=== PATIENT | male | born 1965 ===

== ENCOUNTER 2020-11-18 06:35 | Day surgery (SDC) | payer OTHER ==
[~2020-11-18] VITALS: Ht 170.2 cm; Wt 80.6 kg
[~2020-11-18 06:35] MED LIST: CEPH500 PO; FAMO20 PO; HYDACE5 PO; IBUP800 PO; INCARCERATION
--- NOTE | 2020-11-18 07:53 | NUR ---
Ambulatory in Day Surgery History, Chart, Medications and Allergies reviewed before start of procedure. Lungs clear T/O to Auscultation. Patient confirms NPO status and agrees with scheduled surgery. Patient reports completing Chlorhexadine shower X2 prior to admission to hospital. DR. CALVERT AT BEDSIDE, SMALL ABRASION NOTED TO Linda PIEDRA AND MD BENNETT DUGAN
--- NOTE | 2020-11-18 09:28 | NUR ---
11/18/20 0928 SURYA,MILAN PT NOTED TO HAVE TO AREAS ON THE LEFT LOWER LEG, BELOW LEFT KNEE THAT ARE HEALING. SKIN INTACT, NO DRAINAGE NOTED, NO REDNESS NOTED. DR CALVERT MADE AWARE OF AREAS PRIOR TO PROCEDURE AND DR IS OK TO PROCEED WITH PROCEDURE.
--- NOTE | 2020-11-18 15:08 | NUR ---
WORKING WITH PHYS. OVALLE, VOIDED 550CC CLEAR, YELLOW URINE, MEDICATED W/ 2 OXYCODONE PRIOR TO THERAPY SESSION.
--- NOTE | 2020-11-18 18:21 | NUR ---
SUMMARY REPORTS PAIN IS TOLERABLE WITH PO PAIN MEDS, REPORTS HAVING FULL SENSATION BACK PT HAS AMBULATED DOWN THE HALLS X2, VOIDING WITHOUT DIFFICULTY, TOLERATING REGULAR DIET WELL, L KNEE DSG C/D/I, POLAR PACK IN PLACE, OOB TO CHAIR AFTER AMBULATING, NO ACUTE CHANGES THIS SHIFT.
--- NOTE | 2020-11-19 04:35 | NUR ---
SHIFT SUMMARY POD1 L KNEE UNICOMPARTMENTAL KNEE ARTHROOPLASTY. VSS BUT HAS SOME HTN. PAIN IS WELL CONTROLLED, REPORTS MIN-MODERATE (1-12/27) PT HAD DILAUDID AND ASTRID, TORADOL AND TYLENOL. PT REPORTS DILAUDID MADE HIM ITCH AND STARTED TO HAVE HOT FLUSHES. BUT IT HAS BEEN RESOLVED. L KNEE WITH JUDY WRAPPED CDI WITH POLAR PACK. PT DENIES N/T. HE WALKED ONCE IN THE HALLWAY LAST NIGHT. TOLERATED IT WELL. PT HAD SOME DIZZINESS AT REST AT THE BEGINNING OF THE SHIFT BUT RESOLVED. HE DENIES DIZZINESS WHEN GETTING UP AND WALKING. NO DIFFICULTY WALKING. TOLERATING REG DIET. DENIES N/V. DENIES PASSING FLAUTS. CALL LIGHT WITHIN REACH.
[2020-11-19 04:40] LABS: BASOPHILS ABSOLUTE AUTO 0.03 K/mm3 (0.00-0.23); BASOPHILS PERCENT AUTO 0 % (0-2); EOSINOPHILS PERCENT AUTO 0 % (0-6); Hematocrit 42.2 % (37.0-53.0); Hemoglobin 14.4 g/dL (13.5-17.5); IMMATURE GRAN ABSOLUTE AUTO 0.12 K/mm3 (0.00-0.10); IMMATURE GRAN PERCENT AUTO 1 % (0-1); LYMPHOCYTES PERCENT AUTO 7 % (21-46); MONOCYTES ABSOLUTE AUTO 0.77 K/mm3 (0.16-1.47); MONOCYTES PERCENT AUTO 4 % (4-13); Mean Corpuscular HGB 28.5 pg (26.0-34.0); Mean Corpuscular HGB Conc 34.1 g/dL (31.5-36.5); Mean Corpuscular Volume 84 fL (80-100); Mean Platelet Volume 10.5 fL (9.1-12.4); NEUTROPHILS ABSOLUTE AUTO 15.22 K/mm3 (1.96-9.15); NEUTROPHILS PERCENT AUTO 88 % (41-73); Platelet Count 292 K/mm3 (150-400); RDW Coefficient Variation 12.2 % (11.7-14.2); RDW Standard Deviation 37.3 fL (35.1-46.3); Red Blood Cell Count 5.05 M/mm3 (4.30-5.90); White Blood Cell Count 17.34 K/mm3 (4.00-11.30)
[2020-11-19 04:58] LABS: Anion Gap 6 mmol/L (6-16); Blood Urea Nitrogen 12 mg/dL (8-24); CO2, Blood 26 mmol/L (21-32); Calcium, Blood 9.2 mg/dL (8.5-10.1); Chloride, Blood 106 mmol/L (98-108); Creatinine, Blood 0.92 mg/dL (0.60-1.20); Glomerular Filtration Rate >60 (60-); Glucose, Blood 170 mg/dL (70-99); Potassium, Blood 4.2 mmol/L (3.5-5.5); Sodium, Blood 138 mmol/L (136-145)
[2020-11-19] MEDS ORDERED: Percocet 5-3251 EACH PO (11:31)
[2020-11-19] MEDS ORDERED: ASPI81CH PO (11:32)
--- NOTE | 2020-11-19 13:28 | NUR ---
DISCHARGE PT CLEARED THERAPY. PAIN WELL CONTROLLED. EATING, DRINKING, VOIDING WELL. SCRIPTS, DRSGS, & POLAR PACK SENT. ESCORTED OUT VIA W/C.
== END 2020-11-19 14:45 | disposition home or self-care (01) ==
LOC: ORSCMMR 06:35 → ORD 08:30 → SURS 11:39 → ORSCMMR 11-19 14:45
PROVIDERS: Orthopaedic Surgery
PROC: 8E0YXBZ Computer Assisted Procedure of Lower Extremity (ICD-10-PCS; principal; 2020-11-18 08:30)
PROC: 8E0Y0CZ Robotic Assisted Procedure of Lower Extremity, Open Approach (ICD-10-PCS; principal; 2020-11-18 08:30)
PROC: 0SRU0J9 Replacement of Left Knee Joint, Femoral Surface with Synthetic Substitute, Cemented, Open Approach (ICD-10-PCS; principal; 2020-11-18 08:30)
DX: M17.12 Unilateral primary osteoarthritis, left knee (principal); I10 Essential (primary) hypertension
CPT/HCPCS: 27446; S2900; 36415; 73560-LT; 80048; 85025; 97110; 97116; 97161; 97530; A9270; C1713; C1776; J0171; J0690; J0735; J1100; J1170; J1885; J2250; J2370; J2405; J2704; J2795; J3010; J7120

== ENCOUNTER 2021-04-14 10:02 | Emergency (ER) | payer OTHER ==
[~2021-04-14] VITALS: Ht 170.2 cm; Wt 81.2 kg
[~2021-04-14 10:02] MED LIST changes: +ASPI81CH PO; +Percocet 5-3251 EACH PO
[2021-04-14 10:49] LABS: BASOPHILS ABSOLUTE AUTO 0.04 K/mm3 (0.00-0.23); BASOPHILS PERCENT AUTO 0 % (0-2); EOSINOPHILS ABSOLUTE AUTO 0.61 K/mm3 (0.00-0.68); EOSINOPHILS PERCENT AUTO 7 % (0-6); Hematocrit 44.2 % (37.0-53.0); Hemoglobin 14.9 g/dL (13.5-17.5); IMMATURE GRAN ABSOLUTE AUTO 0.05 K/mm3 (0.00-0.10); IMMATURE GRAN PERCENT AUTO 1 % (0-1); LYMPHOCYTES ABSOLUTE AUTO 1.58 K/mm3 (0.84-5.20); LYMPHOCYTES PERCENT AUTO 18 % (21-46); MONOCYTES ABSOLUTE AUTO 0.56 K/mm3 (0.16-1.47); MONOCYTES PERCENT AUTO 6 % (4-13); Mean Corpuscular HGB 28.5 pg (26.0-34.0); Mean Corpuscular HGB Conc 33.7 g/dL (31.5-36.5); Mean Corpuscular Volume 85 fL (80-100); Mean Platelet Volume 10.9 fL (9.1-12.4); NEUTROPHILS ABSOLUTE AUTO 6.21 K/mm3 (1.96-9.15); NEUTROPHILS PERCENT AUTO 69 % (41-73); Platelet Count 230 K/mm3 (150-400); RDW Coefficient Variation 12.7 % (11.7-14.2); RDW Standard Deviation 38.7 fL (35.1-46.3); Red Blood Cell Count 5.22 M/mm3 (4.30-5.90); White Blood Cell Count 9.05 K/mm3 (4.00-11.30)
[2021-04-14] MEDS ORDERED: Robaxin750 MG PO (11:07)
[2021-04-14 11:21] LABS: Alanine Aminotransfer (ALT/SGP 73 U/L (12-78); Albumin, Blood 3.3 g/dL (3.4-5.0); Albumin/Globulin Ratio 0.9 (0.8-1.8); Alk Phos 158 U/L (50-136); Anion Gap 5 mmol/L (6-16); Aspartate Aminotrans (AST/SGOT 30 U/L (12-37); Bilirubin, Total 0.4 mg/dL (0.1-1.0); Blood Urea Nitrogen 13 mg/dL (8-24); Bun/Creatinine Ratio 14.2 (12.0-20.0); CO2, Blood 28 mmol/L (21-32); Calcium, Blood 8.5 mg/dL (8.5-10.1); Chloride, Blood 104 mmol/L (98-108); Creatinine, Blood 0.91 mg/dL (0.60-1.20); Globulin, Blood 3.7 g/dL (2.2-4.0); Glomerular Filtration Rate >60 (60-); Glucose, Blood 191 mg/dL (70-99); Potassium, Blood 3.8 mmol/L (3.5-5.5); Sodium, Blood 137 mmol/L (136-145); Troponin I <0.015 ng/mL (0.000-0.040)
== END 2021-04-14 11:27 | disposition home or self-care (01) ==
LOC: ER 10:02
PROVIDERS: Emergency Medicine
DX: I10 Essential (primary) hypertension (principal); S39.012A Strain of muscle, fascia and tendon of lower back, initial encounter; X58.XXXA Exposure to other specified factors, initial encounter
CPT/HCPCS: 71046; 80053; 84484; 85025; 93005; 93010; 99284-25

== ENCOUNTER 2021-10-15 10:51 | Emergency (ER) | payer OTHER ==
[~2021-10-15] VITALS: Ht 170.2 cm; Wt 77.1 kg
[~2021-10-15 10:51] MED LIST changes: +Robaxin750 MG PO
[2021-10-15] MEDS ORDERED: Robaxin750 MG PO (12:46)
== END 2021-10-15 13:11 | disposition home or self-care (01) ==
LOC: ER 10:51
DX: S16.1XXA Strain of muscle, fascia and tendon at neck level, initial encounter (principal); S39.012A Strain of muscle, fascia and tendon of lower back, initial encounter; S20.211A Contusion of right front wall of thorax, initial encounter; G44.309 Post-traumatic headache, unspecified, not intractable; I10 Essential (primary) hypertension; Z79.899 Other long term (current) drug therapy; V89.2XXA Person injured in unspecified motor-vehicle accident, traffic, initial encounter
CPT/HCPCS: 70450; 71046; 72125; 96372; 99284-25; A9270; J1885

== ENCOUNTER → 2021-12-31 | Outpatient (CLI) | payer OTHER ==
[2021-12-31 17:27] LABS: Adenovirus F 40/41 Not Detected (NOT DETECT); Astrovirus Not Detected (NOT DETECT); Campylobacter Sp Not Detected (NOT DETECT); Cryptosporidium Not Detected (NOT DETECT); Cyclospora Cayetanensis Not Detected (NOT DETECT); E. Coli O157 Not Detected (NOT DETECT); Entamoeba Histolytica Not Detected (NOT DETECT); Enteroaggregative E. coli-EAEC Not Detected (NOT DETECT); Enteropathogenic E. coli-EPEC Not Detected (NOT DETECT); Enterotoxigenic E. coli-ETEC Not Detected (NOT DETECT); Giardia Lamblia Detected (NOT DETECT); Norovirus GI/GII Not Detected (NOT DETECT); Plesiomonas Shigelloides Not Detected (NOT DETECT); Rotavirus A Not Detected (NOT DETECT); Salmonella Sp Not Detected (NOT DETECT); Sapovirus Not Detected (NOT DETECT); Shiga Toxin-prod E. coli-STEC Not Detected (NOT DETECT); Shigella/Enteroin E. coli-EIEC Not Detected (NOT DETECT); Vibrio Cholerae Not Detected (NOT DETECT); Vibrio Sp Not Detected (NOT DETECT); Yersinia Enterocolitica Not Detected (NOT DETECT)
== END ==
LOC: LAB SHORT 08:00
PROVIDERS: Family Medicine
DX: K52.9 Noninfective gastroenteritis and colitis, unspecified (principal); R10.13 Epigastric pain
CPT/HCPCS: 87507

== ENCOUNTER → 2022-12-22 | Outpatient (CLI) | payer OTHER | END | disposition home or self-care (01) | LOC: LAB 18:00 → LAB SHORT 18:00 | DX: R10.13 Epigastric pain (principal) | CPT/HCPCS: 87338 ==

== ENCOUNTER 2024-05-07 12:18 | Day surgery (SDC) | payer OTHER ==
[2024-05-07] VITALS (13 sets, daily range): BP systolic 104–157; BP diastolic 63–88
[~2024-05-07] VITALS: Ht 170.2 cm; Wt 78.4 kg
[~2024-05-07 12:18] MED LIST changes: +LOSA25 PO
[2024-05-07] MEDS ORDERED: OxyCODONE HCL 10 MG TABCR PO SCH (13:35)
[2024-05-07] MEDS ORDERED: Chlorhexidine Mouth Care 15 ML UDC MT SCH (13:35)
[2024-05-07] MEDS ORDERED: Ropivacaine 0.5% HCl/Pf 123.125 MG,EPINEPHrine HCL 0.25 MG,Ketorolac Tromethamine 15 MG... INFIL SCH (13:35)
[2024-05-07] MEDS ORDERED: CeFAZolin Sodium 2,000 MG in NS 100 ML IV SCH ×2 (13:35→20:30)
[2024-05-07] MEDS ORDERED: Lactated Ringer's 1,000 ML IV SCH ×2 (13:35→17:30)
[2024-05-07] MEDS ORDERED: Acetaminophen 500 MG Tab PO SCH (13:35)
[2024-05-07] MEDS ORDERED: Tranexamic Acid 100 ML IV SCH (13:38)
[2024-05-07] MEDS ORDERED: Midazolam HCl 1MG / ML 2ML Vial ONE ×2 (14:01→14:33)
[2024-05-07] MEDS ORDERED: propofoL 20 ML IV ONE ×4 (14:01→16:04)
[2024-05-07] MEDS ORDERED: FentaNYL Citrate 50 MCG/ML 2 ML Injection ONE (14:02)
--- NOTE | 2024-05-07 14:11 | NUR ---
History, Chart, Medications and Allergies reviewed before start of procedure. Ambulatory in Day Surgery WITH STEADY GAIT. Pre-Op teaching done. Pt verbalizes understanding. PT DENIES ANY FURTHER QUESTIONS. BELONGINGS PLACED UNDER GURN.
[2024-05-07] MEDS ORDERED: DiphenhydrAMINE HCL 25 MG Cap PO PRN (17:30)
[2024-05-07] MEDS ORDERED: Ondansetron HCl 2 MG / ML 2ML Vial IV PRN (17:30)
[2024-05-07] MEDS ORDERED: Bisacodyl 10 MG Supp PR PRN (17:30)
[2024-05-07] MEDS ORDERED: Metoclopramide HCl 5MG / ML 2ML Vial IV PRN (17:30)
[2024-05-07] MEDS ORDERED: Magnesium Hydroxide Conc 10 ML UDC PO PRN (17:30)
[2024-05-07] MEDS ORDERED: Promethazine HCl 25 MG Tab PO PRN (17:35)
[2024-05-07] MEDS ORDERED: OxyCODONE HCL 5 MG TAB PO PRN ×2 (17:35)
[2024-05-07] MEDS ORDERED: HYDROmorphone HCl/Pf 1MG SYR IV PRN (17:35)
--- NOTE | 2024-05-07 17:45 | NUR ---
POST OP ARRIVAL TO SURGICAL UNIT VIA HOSPITAL BED. ALERT & PLEASANT. ANXIOUS ABOUT NOT BEING ABLE TO MOVE BLE R/T SPINAL, REASSURED. ASSESSMENT CHARTED. SNACKS & DRINKS GIVEN BUT NOT INTERESTED.
[2024-05-07] MEDS ORDERED: Ketorolac Tromethamine 15mg Vial IV SCH (18:00)
[2024-05-07] MEDS ORDERED: Simethicone 80 MG Chew PO PRN (20:45)
[2024-05-07] MEDS ORDERED: Docusate Sodium 100 MG Cap PO SCH (21:00)
[2024-05-08] MEDS ORDERED: Acetaminophen 500 MG Tab PO SCH
[2024-05-08 04:29] LABS: BASOPHILS ABSOLUTE AUTO 0.04 K/mm3 (0.00-0.23); BASOPHILS PERCENT AUTO 0 % (0-2); EOSINOPHILS ABSOLUTE AUTO 0.19 K/mm3 (0.00-0.68); EOSINOPHILS PERCENT AUTO 2 % (0-6); Hematocrit 41.8 % (37.0-53.0); Hemoglobin 13.9 g/dL (13.5-17.5); IMMATURE GRAN ABSOLUTE AUTO 0.04 K/mm3 (0.00-0.10); IMMATURE GRAN PERCENT AUTO 0 % (0-1); LYMPHOCYTES PERCENT AUTO 17 % (21-46); MONOCYTES ABSOLUTE AUTO 0.75 K/mm3 (0.16-1.47); MONOCYTES PERCENT AUTO 7 % (4-13); Mean Corpuscular HGB 27.7 pg (26.0-34.0); Mean Corpuscular HGB Conc 33.3 g/dL (31.5-36.5); Mean Corpuscular Volume 83 fL (80-100); Mean Platelet Volume 10.7 fL (9.1-12.4); NEUTROPHILS ABSOLUTE AUTO 8.07 K/mm3 (1.96-9.15); NEUTROPHILS PERCENT AUTO 73 % (41-73); Platelet Count 241 K/mm3 (150-400); RDW Coefficient Variation 12.5 % (11.7-14.2); RDW Standard Deviation 37.9 fL (35.1-46.3); Red Blood Cell Count 5.02 M/mm3 (4.30-5.90); White Blood Cell Count 10.99 K/mm3 (4.00-11.30)
[2024-05-08 04:40] VITALS: BP 149/84
[2024-05-08 05:01] LABS: Bun/Creatinine Ratio 12.1 (12.0-20.0); Calcium, Blood 8.1 mg/dL (8.5-10.1); Creatinine, Blood 0.91 mg/dL (0.60-1.20); Magnesium, Blood 1.8 mg/dL (1.6-2.4); Potassium, Blood 3.5 mmol/L (3.5-5.5)
--- NOTE | 2024-05-08 05:02 | NUR ---
SUMMARY- PT NUMBNESS RESOLVED AND PT WAS ABLE TO VOID AND AMBULATE TO RESTROOM. PT AMBULATED WITH GB AND FWW. PT PAIN MANAGED WELL. PT HAD SOME EPISODES OF ITCHINESS. PT TX WITH BENEDRYL WITH RELIEF. NO NEW ISSUES OR CONCERNS. CALL LIGHT IN REACH.
[2024-05-08 07:28] VITALS: BP 159/94
[2024-05-08 07:29] VITALS: BP 157/85
[2024-05-08] MEDS ORDERED: ACET500 PO (08:26)
[2024-05-08] MEDS ORDERED: ASPI81CH PO (08:26)
[2024-05-08] MEDS ORDERED: OXYC5 PO (08:27)
[2024-05-08] MEDS ORDERED: Losartan Potassium 25 MG Tab PO SCH (09:00)
[2024-05-08] MEDS ORDERED: Aspirin 81 MG Chew PO SCH (09:00)
--- NOTE | 2024-05-08 10:25 | NUR ---
DISCHARGE INSTRUCTIONS CLEARED THERAPY. PAIN CONTROLLED. EATING, DRINKING, & VOIDING. WAITING FOR RIDE.
--- NOTE | 2024-05-08 12:20 | NUR ---
DISCHARGE POLAR PACK & DRSGS SENT. ESCORTED OUT VIA .
== END 2024-05-08 12:53 | disposition home or self-care (01) ==
LOC: ORSCMMR 12:18 → ORD 15:45 → ORSCMMR 15:45 → SURS 17:29 → ORSCMMR 05-08 12:53
PROVIDERS: Orthopaedic Surgery
PROC: 0SRD0JA Replacement of Left Knee Joint with Synthetic Substitute, Uncemented, Open Approach (ICD-10-PCS; principal; 2024-05-07 15:45)
DX: M17.12 Unilateral primary osteoarthritis, left knee (principal); Z96.659 Presence of unspecified artificial knee joint; I10 Essential (primary) hypertension; K21.9 Gastro-esophageal reflux disease without esophagitis; Z79.899 Other long term (current) drug therapy; J45.909 Unspecified asthma, uncomplicated
CPT/HCPCS: 36415; 73560-LT; 80048; 83735; 85025; 97110; 97162; 97530; A9270; C1713; C1776; J0171; J0690; J0735; J1885; J2250; J2704; J2795; J3010; J7120

== ENCOUNTER 2024-12-29 14:47 | Inpatient (IN) | payer OTHER ==
[~2024-12-29] VITALS: Ht 170.2 cm; Wt 77.5 kg
[~2024-12-29 14:47] MED LIST changes: +ACET500 PO; +OXYC5 PO
[2024-12-29] MEDS ORDERED: Ondansetron HCl 2 MG / ML 2ML Vial IV ONE (15:00)
[2024-12-29] MEDS ORDERED: NS 1,000 ML IV SCH ×2 (15:10→16:15)
[2024-12-29] MEDS ORDERED: Morphine Sulfate 4 MG/1 ML Injection IV ONE (15:10)
[2024-12-29 15:15] LABS: BASOPHILS ABSOLUTE AUTO 0.06 K/mm3 (0.00-0.23); BASOPHILS PERCENT AUTO 0 % (0-2); EOSINOPHILS PERCENT AUTO 0 % (0-6); IMMATURE GRAN PERCENT AUTO 1 % (0-1); LYMPHOCYTES ABSOLUTE AUTO 1.22 K/mm3 (0.84-5.20); LYMPHOCYTES PERCENT AUTO 6 % (21-46); MONOCYTES ABSOLUTE AUTO 0.48 K/mm3 (0.16-1.47); MONOCYTES PERCENT AUTO 3 % (4-13); Mean Corpuscular HGB 27.8 pg (26.0-34.0); Mean Corpuscular HGB Conc 32.7 g/dL (31.5-36.5); Mean Corpuscular Volume 85 fL (80-100); Mean Platelet Volume 10.3 fL (9.1-12.4); NEUTROPHILS ABSOLUTE AUTO 17.66 K/mm3 (1.96-9.15); NEUTROPHILS PERCENT AUTO 90 % (41-73); Platelet Count 431 K/mm3 (150-400); RDW Coefficient Variation 12.9 % (11.7-14.2); RDW Standard Deviation 39.8 fL (35.1-46.3); Red Blood Cell Count 5.76 M/mm3 (4.30-5.90); White Blood Cell Count 19.52 K/mm3 (4.00-11.30)
[2024-12-29 15:33] LABS: Albumin, Blood 4.1 g/dL (3.4-5.0); Albumin/Globulin Ratio 1.1 (0.8-1.8); Bilirubin, Total 0.7 mg/dL (0.1-1.0); Bun/Creatinine Ratio 21.9 (12.0-20.0); Calcium, Blood 8.4 mg/dL (8.5-10.1); Creatinine, Blood 0.87 mg/dL (0.60-1.20); Globulin, Blood 3.6 g/dL (2.2-4.0); Potassium, Blood 4.3 mmol/L (3.5-5.5); Total Protein, Blood 7.7 g/dL (6.4-8.2)
[2024-12-29 15:56] LABS: Source, Urine Clean Catch
[2024-12-29 16:00] LABS: Base Excess Venous -16.1 mmol/L; Bicarbonate Venous 13.2 mmol/L (24.0-30.0); pH Blood Venous 7.17 (7.34-7.37)
[2024-12-29 16:02] LABS: Appearance, Urine Clear (Clear); Bilirubin, Urine Neg (Neg); Blood, Urine Neg (Neg); Glucose Qualitative, Urine 4+ (Neg); Ketones, Urine 4+ (Neg); Leukocyte Esterase, Urine Neg (Neg); Nitrite, Urine Neg (Neg); Protein, Urine 1+ (Neg); Specific Gravity, Urine 1.025 (1.003-1.022); Urobilinogen, Urine NORM (Normal)
[2024-12-29 16:07] LABS: Color, Urine Pale Yellow (P-Yellow)
[2024-12-29] MEDS ORDERED: Insulin Human Regular 100 UNIT in NS 100 ML IV SCH (16:50)
[2024-12-29] MEDS ORDERED: Potassium Chl 20MEQ/Water100ML 100 ML IV SCH ×2 (16:55→17:15)
[2024-12-29] MEDS ORDERED: Dextrose 10% 500 ML IV SCH (17:10)
[2024-12-29 17:21] LABS: Magnesium, Blood 2.1 mg/dL (1.6-2.4); Phosphorus, Blood 4.7 mg/dL (2.5-4.9)
[2024-12-29] MEDS ORDERED: FentaNYL Citrate 50 MCG/ML 2 ML Injection IV PRN (17:35)
[2024-12-29] MEDS ORDERED: Ondansetron HCl 2 MG / ML 2ML Vial IV PRN (17:35)
[2024-12-29] MEDS ORDERED: D5W-1/2NS 1,000 ML IV SCH ×2 (17:35→18:00)
[2024-12-29 17:46] LABS: Bun/Creatinine Ratio 22.6 (12.0-20.0); Calcium, Blood 7.6 mg/dL (8.5-10.1); Creatinine, Blood 0.8 mg/dL (0.60-1.20)
[2024-12-29] MEDS ORDERED: Sodium Bicarb 8.4% 1 MEQ/ML 50 ML Vial IV ONE (18:00)
[2024-12-29] MEDS ORDERED: Enoxaparin 40 MG/0.4 ML SYR SC SCH (18:00)
[2024-12-29 19:40] LABS: Bun/Creatinine Ratio 23.7 (12.0-20.0); Calcium, Blood 7.8 mg/dL (8.5-10.1); Creatinine, Blood 0.76 mg/dL (0.60-1.20); Potassium, Blood 4.4 mmol/L (3.5-5.5)
[2024-12-29 20:45] LABS: Bun/Creatinine Ratio 20.5 (12.0-20.0); Calcium, Blood 7.9 mg/dL (8.5-10.1); Creatinine, Blood 0.83 mg/dL (0.60-1.20); Potassium, Blood 4.6 mmol/L (3.5-5.5)
[2024-12-29 22:08] LABS: Bun/Creatinine Ratio 20.8 (12.0-20.0); Calcium, Blood 7.7 mg/dL (8.5-10.1); Creatinine, Blood 0.82 mg/dL (0.60-1.20); Potassium, Blood 4.6 mmol/L (3.5-5.5)
[2024-12-30 01:36] LABS: Calcium, Blood 7.3 mg/dL (8.5-10.1); Creatinine, Blood 0.74 mg/dL (0.60-1.20); Potassium, Blood 3.8 mmol/L (3.5-5.5)
[2024-12-30 04:29] LABS: Albumin, Blood 3.4 g/dL (3.4-5.0); Albumin/Globulin Ratio 1.2 (0.8-1.8); Bilirubin, Total 1.1 mg/dL (0.1-1.0); Bun/Creatinine Ratio 18.3 (12.0-20.0); Calcium, Blood 7.9 mg/dL (8.5-10.1); Creatinine, Blood 0.76 mg/dL (0.60-1.20); Globulin, Blood 2.8 g/dL (2.2-4.0); Potassium, Blood 3.7 mmol/L (3.5-5.5); Total Protein, Blood 6.2 g/dL (6.4-8.2)
[2024-12-30] MEDS ORDERED: Lactated Ringer's 1,000 ML IV ONE (06:39)
[2024-12-30] MEDS ORDERED: Lactated Ringer's 1,000 ML IV SCH (06:40)
[2024-12-30 08:09] LABS: Creatinine, Blood 0.7 mg/dL (0.60-1.20); Potassium, Blood 3.8 mmol/L (3.5-5.5)
[2024-12-30 10:56] LABS: BASOPHILS ABSOLUTE AUTO 0.03 K/mm3 (0.00-0.23); BASOPHILS PERCENT AUTO 0 % (0-2); EOSINOPHILS ABSOLUTE AUTO 0.01 K/mm3 (0.00-0.68); EOSINOPHILS PERCENT AUTO 0 % (0-6); Hematocrit 43.1 % (37.0-53.0); Hemoglobin 14.2 g/dL (13.5-17.5); IMMATURE GRAN ABSOLUTE AUTO 0.05 K/mm3 (0.00-0.10); IMMATURE GRAN PERCENT AUTO 0 % (0-1); LYMPHOCYTES PERCENT AUTO 12 % (21-46); MONOCYTES ABSOLUTE AUTO 1.32 K/mm3 (0.16-1.47); MONOCYTES PERCENT AUTO 9 % (4-13); Mean Corpuscular HGB 27.9 pg (26.0-34.0); Mean Corpuscular HGB Conc 32.9 g/dL (31.5-36.5); Mean Corpuscular Volume 85 fL (80-100); Mean Platelet Volume 10.6 fL (9.1-12.4); NEUTROPHILS ABSOLUTE AUTO 11.41 K/mm3 (1.96-9.15); NEUTROPHILS PERCENT AUTO 78 % (41-73); Platelet Count 281 K/mm3 (150-400); RDW Standard Deviation 40.5 fL (35.1-46.3); Red Blood Cell Count 5.09 M/mm3 (4.30-5.90); White Blood Cell Count 14.62 K/mm3 (4.00-11.30)
[2024-12-30 11:06] LABS: Bun/Creatinine Ratio 18.3 (12.0-20.0); Calcium, Blood 8.5 mg/dL (8.5-10.1); Creatinine, Blood 0.77 mg/dL (0.60-1.20); Potassium, Blood 3.9 mmol/L (3.5-5.5)
[2024-12-30] MEDS ORDERED: NS KCl 20mEq 1,000 ML IV SCH (15:00)
[2024-12-30] MEDS ORDERED: Insulin Human Lispro 100 Units/ML 3ML Syringe SC SCH (16:30)
--- NOTE | 2024-12-30 16:30 | NUR ---
PT ARRIVED TO ROOM AT 1450 AOX4 AND COOPERATIVE OF CARE. NO DISTRESS NOTED AND PT ORIENTED TO ROOM AND CALL LIGHT. PT HAS FAMILY AT BEDSIDE CURRETNLY. PT IS INDEPENDENT AND ABLE TO MAKE NEEDS KNOWN. CALL LIGHT IS IN REACH. WILL CONTINUET TO MONITOR.
[2024-12-30 16:32] LABS: Calcium, Blood 8.5 mg/dL (8.5-10.1); Creatinine, Blood 0.73 mg/dL (0.60-1.20); Potassium, Blood 3.8 mmol/L (3.5-5.5)
[2024-12-30] MEDS ORDERED: OxyCODONE HCL 5 MG TAB PO PRN (17:00)
[2024-12-30] MEDS ORDERED: Losartan Potassium 25 MG Tab PO SCH (17:00)
[2024-12-30 20:22] VITALS: BP 162/87
[2024-12-30] MEDS ORDERED: Insulin Glargine-Yfgn 100 Unit/mL 3 ML SYR SC SCH (21:00)
[2024-12-30 22:16] LABS: Bun/Creatinine Ratio 15.2 (12.0-20.0); Calcium, Blood 8.2 mg/dL (8.5-10.1); Creatinine, Blood 0.72 mg/dL (0.60-1.20)
[2024-12-31] MEDS ORDERED: Acetaminophen 500 MG Tab PO SCH
[2024-12-31 00:47] VITALS: BP 163/78
--- NOTE | 2024-12-31 04:11 | NUR ---
SHIFT SUMMARY PT ALERT ORIENTED X 4 ABLE TO VERBALIZE NEEDS AMBULATES TO BATHROOM WITH 1 PERSON SBA. FS DONE AC AND HS WAS 217 AND HE WAS MEDICATED WITH HIS GLARGINE. VSS ON RA SATTING AT 96%. HIS BP WAS SLIGHTLY ELEVATED AT 163/78. REMAINS ON TELEMETRY AT NSR AT 65. REMAINS ON NS WITH 20 K AT 150. NO C/O PAIN THIS SHIFT. REMAINS ON ROUTINE TYLENOL. RESTING IN BED AT THIS TIME WITH CALL LIGHT IN REACH
[2024-12-31 05:17] VITALS: BP 146/70
[2024-12-31 06:30] LABS: Albumin, Blood 3.1 g/dL (3.4-5.0); Albumin/Globulin Ratio 1.1 (0.8-1.8); Bilirubin, Total 0.7 mg/dL (0.1-1.0); Bun/Creatinine Ratio 14.7 (12.0-20.0); Calcium, Blood 8.2 mg/dL (8.5-10.1); Creatinine, Blood 0.61 mg/dL (0.60-1.20); Globulin, Blood 2.9 g/dL (2.2-4.0); Phosphorus, Blood 2.2 mg/dL (2.5-4.9); Potassium, Blood 3.8 mmol/L (3.5-5.5)
[2024-12-31 07:34] VITALS: BP 153/79
[2024-12-31] MEDS ORDERED: Aspirin 81 MG Chew PO SCH (09:00)
[2024-12-31] MEDS ORDERED: Potassium Phosphate Dibasic 30 MM in Dextrose 5% 500 ML IV STA (09:16)
[2024-12-31 11:42] VITALS: BP 165/89
[2024-12-31 15:30] VITALS: BP 172/91
[2024-12-31] MEDS ORDERED: FARXIGA10 MG PO (16:09)
[2024-12-31] MEDS ORDERED: RYBELSUS7 MG PO (16:11)
--- NOTE | 2024-12-31 17:51 | NUR ---
REPORTED BP 172/[address] WALDROP IS AWARE NOT CHANGES MADE.
[2024-12-31] MEDS ORDERED: Losartan Potassium 25 MG Tab PO STA (17:58)
[2024-12-31] MEDS ORDERED: GLIP2.5ER PO (18:45)
[2024-12-31] MEDS ORDERED: METF500 PO (18:46)
--- NOTE | 2024-12-31 19:35 | NUR ---
PT DISCHARGED AT 1740 ALL PAPERWORK REVIEWED AND EDUCATIONAL MATERIAL SENT WITH PT. EXTRA EDUCATION WAS GIVEN RELATED TO MONITORING DM2 WELL MAKING SURE TO TAKE ALL MEDS. FAMILY TO TRANSPORT OUT NO DISTRESS NOTED. PT HAS BEEN AOX4 ALL DAY AND NABOR TO AMBULATE ON HIS OWN.
== END 2025-01-01 01:28 | disposition home or self-care (01) | DRG 639 ==
LOC: ER 14:47 → ERHOLD 14:48 → MEDS 12-30 12:58
PROVIDERS: Emergency Medicine; Internal Medicine; Physician Assistant; ADMIT Internal Medicine
DX: E11.10 Type 2 diabetes mellitus with ketoacidosis without coma (principal); I10 Essential (primary) hypertension; G89.29 Other chronic pain; Z96.652 Presence of left artificial knee joint; M25.562 Pain in left knee; E86.0 Dehydration; K57.30 Diverticulosis of large intestine without perforation or abscess without bleeding; K76.0 Fatty (change of) liver, not elsewhere classified; Z98.1 Arthrodesis status; Z79.899 Other long term (current) drug therapy; Z79.82 Long term (current) use of aspirin; Z79.891 Long term (current) use of opiate analgesic; Z91.148 Patient's other noncompliance with medication regimen for other reason
CPT/HCPCS: 36415; 74177; 76705; 80048; 80053; 82010; 82803; 82947; 83036; 83605; 83690; 83735; 83880; 84100; 84484; 85025; 93005; 93010; 96361; 96365-59; 96366; 96372; 96372-59; 96375; 99285-25; A9270; G0378; J1650; J1815; J2270; J2405; J3010; J3480; J7030; J7060; J7120; Q9967

== ENCOUNTER 2025-08-12 16:51 | Emergency (ER) | payer OTHER ==
[~2025-08-12] VITALS: Ht 170.2 cm; Wt 79.8 kg
[~2025-08-12 16:51] MED LIST changes: +FARXIGA10 MG PO; +GLIP2.5ER PO; +METF500 PO; +RYBELSUS7 MG PO
[2025-08-12 17:41] LABS: BASOPHILS ABSOLUTE AUTO 0.04 K/mm3 (0.00-0.23); BASOPHILS PERCENT AUTO 0 % (0-2); EOSINOPHILS ABSOLUTE AUTO 0.09 K/mm3 (0.00-0.68); EOSINOPHILS PERCENT AUTO 1 % (0-6); Hematocrit 45.1 % (37.0-53.0); Hemoglobin 15.6 g/dL (13.5-17.5); IMMATURE GRAN ABSOLUTE AUTO 0.04 K/mm3 (0.00-0.10); IMMATURE GRAN PERCENT AUTO 0 % (0-1); LYMPHOCYTES ABSOLUTE AUTO 2.28 K/mm3 (0.84-5.20); LYMPHOCYTES PERCENT AUTO 16 % (21-46); MONOCYTES ABSOLUTE AUTO 1.23 K/mm3 (0.16-1.47); MONOCYTES PERCENT AUTO 9 % (4-13); Mean Corpuscular HGB Conc 34.6 g/dL (31.5-36.5); Mean Corpuscular Volume 79 fL (80-100); NEUTROPHILS ABSOLUTE AUTO 10.36 K/mm3 (1.96-9.15); NEUTROPHILS PERCENT AUTO 74 % (41-73); NRBC ABSOLUTE 0.00 K/mm3 (0.00-0.02); NRBC Auto 0.0 /100 WBC (0.0-0.2); Platelet Count 348 K/mm3 (150-400); RDW Coefficient Variation 13.1 % (11.7-14.2); RDW Standard Deviation 36.8 fL (35.1-46.3)
[2025-08-12 18:01] LABS: Alanine Aminotransfer (ALT/SGP 52.0 U/L (12-78); Albumin, Blood 4.0 g/dL (3.4-5.0); Albumin/Globulin Ratio 1.2 (0.8-1.8); Anion Gap 15.0 mmol/L (3-11); Aspartate Aminotrans (AST/SGOT 49.0 U/L (12-37); Bilirubin, Total 0.5 mg/dL (0.1-1.0); Blood Urea Nitrogen 9.0 mg/dL (8-24); CO2, Blood 22.0 mmol/L (21-32); Calcium, Blood 8.3 mg/dL (8.5-10.1); Chloride, Blood 94.0 mmol/L (98-108); Creatinine, Blood 0.79 mg/dL (0.60-1.20); Globulin, Blood 3.4 g/dL (2.2-4.0); Glucose, Blood 297.0 mg/dL (70-99); Potassium, Blood 3.9 mmol/L (3.5-5.5); Sodium, Blood 127.0 mmol/L (136-145); Total Protein, Blood 7.4 g/dL (6.4-8.2)
[2025-08-12] MEDS ORDERED: NS 1,000 ML IV SCH (20:20)
[2025-08-12] MEDS ORDERED: Pantoprazole Sodium 40 MG Injection IV ONE (20:20)
[2025-08-12] MEDS ORDERED: Ondansetron HCl 2 MG / ML 2ML Vial IV ONE (20:20)
[2025-08-12] MEDS ORDERED: FentaNYL Citrate 50 MCG/ML 2 ML Injection IV ONE (20:20)
[2025-08-12 20:51] LABS: Source, Urine Clean Catch
[2025-08-12 20:55] LABS: Bilirubin, Urine Neg (Neg); Glucose Qualitative, Urine 3+ (Neg); Ketones, Urine Neg (Neg); Leukocyte Esterase, Urine Neg (Neg); Protein, Urine 1+ (Neg); Specific Gravity, Urine 1.005 (1.003-1.022); Urobilinogen, Urine NORM (Normal)
[2025-08-12 21:05] LABS: Color, Urine Pale Yellow (P-Yellow)
[2025-08-12 21:07] LABS: Red Blood Cells, Urine 0-2 /hpf (0-2); White Blood Cells, Urine 0-2 /hpf (0-5)
[2025-08-12 22:45] VITALS: BP 146/57
[2025-08-12] MEDS ORDERED: DICY20 PO (22:59)
[2025-08-12] MEDS ORDERED: ONDA4ODT MM (22:59)
[2025-08-12] MEDS ORDERED: RX Prepack 2 Tabs Ondansetron ODT 4MG UD ONE (23:00)
== END 2025-08-12 23:18 | disposition home or self-care (01) ==
LOC: ER 16:51
PROVIDERS: Student in an Organized Health Care Education/Training Program
DX: E11.65 Type 2 diabetes mellitus with hyperglycemia (principal); R10.33 Periumbilical pain; R74.01 Elevation of levels of liver transaminase levels; R11.2 Nausea with vomiting, unspecified; K57.90 Diverticulosis of intestine, part unspecified, without perforation or abscess without bleeding; K40.20 Bilateral inguinal hernia, without obstruction or gangrene, not specified as recurrent; K76.0 Fatty (change of) liver, not elsewhere classified; I10 Essential (primary) hypertension; T50.916A Underdosing of multiple unspecified drugs, medicaments and biological substances, initial encounter; Z91.148 Patient's other noncompliance with medication regimen for other reason; Z79.84 Long term (current) use of oral hypoglycemic drugs; Z79.82 Long term (current) use of aspirin; Z79.899 Other long term (current) drug therapy
CPT/HCPCS: 74177; 80053; 81001; 83690; 85025; 93005; 93010; 96361; 96374-59; 96375; 99284-25; A9270; J2405; J2470; J3010; J7030; Q9967